=== PATIENT | male | born 1945 | race Caucasian/White ===

== ENCOUNTER 2023-11-09 11:28 | Day surgery (SDC) | payer MEDICARE, OTHER ==
[~2023-11-09 11:28] MED LIST: LACTATED RINGERS 1,000 ML IV SCH; LIDOCAINE 1% (10MG/ML) FOR IV START INTRADERMA PRN; ONDANSETRON 4 MG/2 ML VIAL IVP PRN; SODIUM CHLORIDE 0.9% 1,000 ML IV SCH; fentaNYL (PF) 50 MCG/ML 2 ML AMP IV PRN
[2023-11-09 13:01] LABS: Basophils # (A) 0.1 k/uL (0-0.2); Basophils % (A) 1 %; Eosinophils # (A) 0.2 k/uL (0-0.7); Eosinophils % (A) 3 %; HCT 46.1 % (39.0-53.0); HGB 15.3 gm/dL (13.0-17.5); Lymphocytes # (A) 1.8 k/uL (1.0-4.8); Lymphocytes % (A) 23 %; MCH 31.5 pg (25.0-35.0); MCHC 33.2 g/dL (31.0-37.0); MCV 95.1 fL (80.0-100.0); Mean Platelet Volume 10.1; Monocytes # (A) 0.6 k/uL (0-1.0); Monocytes % (A) 8 %; Neutrophils % (A) 64 %; Platelet Count 215 k/uL (150-450); RBC 4.85 m/uL (4.30-5.90); RDW 12.7 % (11.5-15.5); WBC 7.8 k/uL (3.8-10.6)
[2023-11-09 13:15] LABS: African American GFR (CKD) >90 (>60 ml/min/1.73 sqM); Anion Gap 6 mmol/L; Blood Urea Nitrogen 20 mg/dL (9-20); Calcium 9.1 mg/dL (8.4-10.2); Carbon Dioxide 28 mmol/L (22-30); Chloride 108 mmol/L (98-107); Glucose 91 mg/dL (74-99); Non-African American GFR(CKD) 87 (>60 ml/min/1.73 sqM); Sodium 142 mmol/L (137-145)
[2023-11-09] MEDS: SODIUM CHLORIDE 0.9% 1,000 ML IV ONE (13:16)
[2023-11-09 13:29] VITALS: BP 154/69; PULSE 62; RESP 16; TEMP 97.8
[2023-11-09] MEDS ORDERED: fentaNYL (PF) 50 MCG/ML 2 ML AMP ONE (13:42)
[2023-11-09] MEDS ORDERED: MIDAZOLAM 2 MG/2 ML VIAL ONE (13:42)
[2023-11-09] MEDS ORDERED: PROPOFOL 10 MG/ML 20 ML VIAL IV ONE (13:42)
[2023-11-09] MEDS ORDERED: LIDOCAINE 1% INJ 10MG/ML (20 ML MDV) ONE (13:47)
[2023-11-09] MEDS: LIDOCAINE 2% (PF) 20 MG/ML 10 ML AMP SQ ONE (14:25)
[2023-11-09] MEDS: LIDOCAINE 1% INJ 10MG/ML (20 ML MDV) SQ ONE ×2 (14:25→14:45)
[2023-11-09] MEDS: VANCOMYCIN 1,250 MG in SODIUM CHLORIDE 0.9% 250 ML IVPB PRN (14:38)
[2023-11-09] MEDS: ceFAZolin 1 GM in SODIUM CHLORIDE 0.9% IRRIG BTL 250 ML IRRIGATION PRN (14:38)
--- NOTE | 2023-11-09 15:13 | P.EPPROC ---
- EP Procedure Note Electrophysiology Procedure Note: Diagnosis History of chronic ischemic cardiomyopathy, history of CAD, status post stenting, old [place] many years back Sustained monomorphic VT, symptomatic Bradycardia Dual-chamber ICD implanted at [place] in 2009, 15 February for secondary prevention of sudden cardiac and management of bradycardia On Guideline directed medical treatment Dual-chamber ICD at [facility], normal battery depletion Procedure: Dual-chamber ICD implantation for management of risk of sudden cardiac 4/bradycardia Result: Dual chamber ICD generator change Cinefluoroscopy revealed a dual-chamber ICD system, dual coil, RV screwed in low RV septum Chronic atrial lead: [employer] model #4153, serial #[id number], implanted February 15, 2010 P waves 1.9 mV, pacing threshold 0.8 V at point 5 ms a pacing impedance of 490 ohms Chronic RV ICD lead: Dual coil [employer] model #0185 and serial #[id number], implanted February 15, 2010 R waves 3 mV, pacing threshold 2.75 V at point 5 ms and pacing impedance of 490 ohms High-voltage impedance 88 ohms, RV to can. SVC coil turned off Procedure details: Patient was brought to the EP lab in a fasting state. Written informed consent was obtained prior to the procedure. Options, pros and cons, benefits and risks and complications discussed with patient in detail prior to the procedure (shared decision making). Importance of continuing medical treatment emphasized. Alternatives discussed. Patient would like to proceed with dual-chamber ICD generator change The left pectoral area was prepped and draped as a protocol. IV antibiotics administered 1% lidocaine was used for local anesthesia. A 4 cm incision was made parallel to the deltopectoral groove, about 1.5 cm medial to it. The incision was carried down to the level of the pectoralis muscle and the subfascial pocket was entered. Hemostasis assured. Partial capsulectomy perfor med. Old generator explanted. New generator implanted, but. Wound closed in 3 layers and dressed per protocol. Antibiotic pouch placed in pocket. IV vancomycin administered Dual ICD interrogated and programmed. Appropriate pacing parameters, antitachycardia therapies with antitachycardia pacing cardioversion defibrillations programmed. SVC coil turned off Patient tolerated the procedure well without any acute complications. See scanned device report in EMR for lead details Defibrillation level testing performed since R waves were 3 mV in amplitude, in sinus rhythm Ventricular fibrillation was induced and appropriately detected at least sensitivity. No dropouts Successfully internally defibrillated with a 10 J shock anode configuration/RV polarity polarity High-voltage impedance 90 ohms, charge time 1.8 seconds, no post shock noise
[2023-11-09] MEDS ORDERED: ACETAMINOPHEN IV (For NPO) 1,000 MG in EMPTY BAG 1 BAG IVPB ONE (15:15)
[2023-11-09] MEDS ORDERED: ACETAMINOPHEN TAB 325 MG TAB PO PRN (15:15)
[2023-11-09] MEDS ORDERED: FUROSEMIDE 40 MG TAB PO SCH (21:00)
[2023-11-09] MEDS ORDERED: carvediloL 3.125 MG TAB PO SCH (21:00)
[2023-11-09] MEDS ORDERED: NON FORMULARY DRUG (Simvastatin 40 MG Tab) PO SCH (21:00)
[2023-11-09] MEDS ORDERED: NON FORMULARY DRUG (Magnesium [Magnesium] 200 MG Tablet) PO SCH (21:00)
[2023-11-10] MEDS ORDERED: ASPIRIN 81 MG PO SCH (09:00)
== END 2023-11-09 17:12 ==
LOC: CATHEP 11:28
PROVIDERS: ATTEND Internal Medicine Clinical Cardiac Electrophysiology
DX: Z45.02 Encounter for adjustment and management of automatic implantable cardiac defibrillator (principal); I25.5 Ischemic cardiomyopathy; I50.9 Heart failure, unspecified; I25.10 Atherosclerotic heart disease of native coronary artery without angina pectoris; I25.2 Old myocardial infarction; Z95.5 Presence of coronary angioplasty implant and graft
CPT/HCPCS: 93641; 33263; 80048; 85025; C1721; J2250; J3370; J0690; J2001; J3010; J2704; 33249